=== PATIENT | male | born 2000 | race Caucasian/White ===

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

== ENCOUNTER 2019-05-26 08:57 | Emergency (ER) | payer SELFPAY ==
[~2019-05-26] VITALS: Ht 172.7 cm; Wt 68.3 kg
[2019-05-26 09:04] VITALS: BP 124/76
--- NOTE | 2019-05-26 09:12 | NUR ---
PATIENT ARRIVES WITH PAIN IN LEFT LOWER JAW STATES HE THINKS WISDOM TOOTH IS INFECTED. HE HAS NOT HAD WISDOM TEETH REMOVED. STATES ONE WEEK AGO IT BEGAN, HURTS TO EAT/SWALLOW
== END 2019-05-26 09:33 | disposition home or self-care (01) ==
LOC: ED 09:25
DX: K08.89 Other specified disorders of teeth and supporting structures (principal)
CPT/HCPCS: 99283

== ENCOUNTER 2019-12-07 07:56 | Emergency (ER) | payer OTHER ==
[~2019-12-07] VITALS: Ht 177.8 cm; Wt 67.2 kg
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
[2019-12-07] MEDS ORDERED: IBUP100T PO (08:17)
[2019-12-07 08:37] LABS: BASOPHILS # (AUTO) 0.02 x10^3/uL (0-0.3); BASOPHILS % (AUTO) 0 % (0-1); EOSINOPHILS # (AUTO) 0.22 x10^3/uL (0-0.8); EOSINOPHILS % (AUTO) 3 % (1-7); LYMPHOCYTES # (AUTO) 2.11 x10^3/uL (1-6.1); LYMPHOCYTES % (AUTO) 31 % (22-44); MD NO; MEAN CORPUSCULAR HEMOGLOBIN 30.2 pg (27.5-34.5); MEAN CORPUSCULAR HGB CONC 32.9 g/dL (33.2-36.2); MEAN CORPUSCULAR VOLUME 91.9 fL (81-97); MEAN PLATELET VOLUME 8.8 fL (7.4-10.4); MONOCYTES # (AUTO) 0.42 x10^3/uL (0-1.4); MONOCYTES % (AUTO) 6 % (2-9); NEUTROPHILS # (AUTO) 4.11 x10^3/uL (1.8-8.0); NEUTROPHILS % (AUTO) 60 % (42-75); PLATELET COUNT 200 x10^3/uL (130-400); RED BLOOD COUNT 4.72 x10^6/uL (4.38-5.82); RED CELL DISTRIBUTION WIDTH 13.3 % (9.4-14.8)
[2019-12-07 08:45] LABS: ANION GAP 3 mmol/L (5-15); CHLORIDE 113 mmol/L (98-107); CREATININE 0.82 mg/dL (0.7-1.3)
--- NOTE | 2019-12-07 08:54 | NUR ---
Bedside report to Nellie ROBLERO. pt care transferred at this time. pt NAD, no acute changes in condition. appears comfortable. waiting for test results. WCTM.
--- NOTE | 2019-12-07 08:56 | NUR ---
REPORT FROM MARSHA, ASSUME CARE OF PT AT THIS TIME. ALL PT RESULTS BACK, READY FOR RECHECK BY ERP.
[2019-12-07 10:04] VITALS: BP 112/61
== END 2019-12-07 10:06 | disposition home or self-care (01) ==
LOC: ED 08:37
DX: R11.2 Nausea with vomiting, unspecified (principal); R05 Cough; I49.3 Ventricular premature depolarization; R09.81 Nasal congestion
CPT/HCPCS: 36415; 71045; 80048; 82040; 85025; 93005; 99285

== ENCOUNTER 2020-02-09 16:38 | Emergency (ER) | payer SELFPAY ==
[~2020-02-09] VITALS: Ht 175.3 cm; Wt 66.8 kg
[~2020-02-09 16:38] MED LIST changes: +IBUP100T PO
--- NOTE | 2020-02-09 16:51 | NUR ---
C COLLAR APPLIED IN TRIAGE
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
[2020-02-09 18:35] VITALS: BP 115/59
[2020-02-09] MEDS ORDERED: KETOROLAC 30 MG/1 ML ONE (18:38)
[2020-02-09] MEDS ORDERED: ACETAMINOPHEN 325 MG TABLET ONE (18:38)
[2020-02-09] MEDS ORDERED: CYCLOBENZAPRINE 10 MG TABLET ONE (18:38)
--- NOTE | 2020-02-09 18:43 | NUR ---
BREAK RN: C-COLLAR OFF PER LORNA CRAWFORD. VS STABLE. NO ACUTE DISTRESS NOTED. CALL LIGHT IN PLACE. WILL CONTINUE TO MONITOR WHILE PRIMARY RN IS ON BREAK.
--- NOTE | 2020-02-09 18:57 | NUR ---
REPORT GIVEN TO OSBALDO JURADO
[2020-02-09] MEDS ORDERED: ACETAMINOPHEN 325 MG TABLET PO ONE (19:00)
[2020-02-09] MEDS ORDERED: CYCLOBENZAPRINE 10 MG TABLET PO ONE (19:00)
[2020-02-09] MEDS ORDERED: KETOROLAC 30 MG/1 ML IM ONE (19:00)
--- NOTE | 2020-02-09 19:12 | NUR ---
Patient/Caregiver given discharge instructions and they have confirmed that they understand the instructions. Patient ambulatory with steady gait.
== END 2020-02-09 19:13 | disposition home or self-care (01) ==
LOC: ED 17:19
DX: S16.1XXA Strain of muscle, fascia and tendon at neck level, initial encounter (principal); S29.012A Strain of muscle and tendon of back wall of thorax, initial encounter; Z87.891 Personal history of nicotine dependence; V43.52XA Car driver injured in collision with other type car in traffic accident, initial encounter; Y93.89 Activity, other specified; Y92.488 Other paved roadways as the place of occurrence of the external cause; Y99.8 Other external cause status
CPT/HCPCS: 72072; 72125; 96372; 99284; J1885